=== PATIENT | female | born 1965 | race Caucasian/White ===

== ENCOUNTER → 2016-11-13 | Outpatient (CLI) | payer OTHER ==
[~2016-11-13] MED LIST: GABA300 PO; OMEP20TA39 PO; TRAM50TA PO; VALT500T PO
[2016-11-13 09:22] LABS: BLOOD GAS BASE EXCESS -0.1 mmol/L (-2-2); BLOOD GAS HCO3 24 mmol/L (22-26); BLOOD GAS METHEMOGLOBIN 1.2 % (0-2); BLOOD GAS O2 HGB SATURATION 91 % (90-100); BLOOD GAS OXYGEN CONTENT 18.6 Vol % (12.0-20.0); BLOOD GAS PCO2 40 mmHg (38-42); BLOOD GAS PO2 76 mmHg (61-120); BLOOD GAS TOTAL HGB 14.6 G/DL (12.0-16.0); CRITICAL VALUE NO; DRAW SITE RT RADIAL; FIO2 21 %; NUMBER OF ARTERIAL PUNCTURES 1; STAT NO; TEMP CORR TO 98.6; ULNAR PULSE PRESENT
--- NOTE | 2016-11-16 11:49 | RSPPFT ---
DATE OF PROCEDURE: 11/13/16 COMMENTS: Spirometry shows FVC of 2.5 at 79% of predicted, FEV1 of 1.6 at 69%, FEV1/FVC ratio is decreased. Flow is decreased at FEF 25, FEF 50, FEF 75 and FEF 25-75. There is a paradoxical response to bronchodilator treatment. Lung volumes show residual volume is increased. TLC is normal. Diffusion capacity is normal. Flow volume loop indicates an obstructive pattern. Room air arterial blood gases show pH of 7.40, PCO2 of 40, PO2 of 76, BiCarb of 24 and O2 Saturation at 91%. IMPRESSION: 1. Mild small airways obstructive lung disease. 2. Paradoxical response to bronchodilator treatment. 3. Lung volumes show hyperinflation. 4. Diffusion capacity is normal. 5. Blood gases show mild hypoxia on room air.
== END ==
LOC: HRSP 07:43
PROVIDERS: ATTEND Specialist
DX: J44.9 Chronic obstructive pulmonary disease, unspecified (principal)
CPT/HCPCS: 36600; 82805; 94060; 94726; 94729